=== PATIENT | female | born 1980 | race Hispanic/Latino ===

== ENCOUNTER 2021-04-21 17:04 | Emergency (ER) | payer OTHER ==
--- NOTE | 2021-04-21 18:42 | Event Note ---
ED Screening Note Date of service: 04/21/21 Time: 18:39 ED Screening Note: This initial assessment/diagnostic orders/clinical plan/treatment(s) is/are subject to change based on patients health status, clinical progression and re- assessment by fellow clinical providers in the ED. Further treatment and workup at subsequent clinical providers discretion. Patient/guardian urged not to elope from the ED as their condition may be serious if not clinically assessed and managed. Initial orders include:
--- NOTE | 2021-04-21 18:51 | Emergency Department Report ---
ED General Adult HPI - General Chief complaint: Extremity Problem,Nontraumatic Stated complaint: BOTH LEGS AND ANKLES PAIN/SWOLLEN Time Seen by Provider: 04/21/21 18:38 - History of Present Illness Initial comments: The patient was evaluated in the emergency department for symptoms described in the history of present illness. He/she was evaluated in the context of the global COVID-19 pandemic, which necessitated consideration that the patient might be at risk for infection with the virus that causes COVID-19. Institutional protocols and algorithms that pertain to the evaluation of patients at risk for COVID-19 are in a state of rapid change based on information released by regulatory bodies including the CDC and federal and state organizations. These policies and algorithms were followed during the patient's care in the emergency department. Please note that these policies, procedures and recommendations changed on a rapid basis. 40-year-old female presents to the emergency room complaining of bilateral leg swelling and pain for couple days. Patient states that she is only had this when she was . She states has been over 20 years ago. Patient is not vaccinated and is up-to-date on her vaccines. She does smoke cigarettes and states that she has recently stopped drinking alcohol as early as 2 to 3 months. Patient denies any chest pain no shortness of breath. She denies any recent travels. She does report a history of depression and hypertension. Patient states that she is currently on gabapentin Seroquel trazodone Cymbalta Wellbutrin and Lopressor. Patient states that she is followed by psychiatrist Dr. Parra. Onset/Timin -: days(s) Location: lower extremity Radiation: non-radiation Severity scale (0 -10): 9 Quality: burning, sharp Consistency: constant Improves with: none Worsens with: movement (And bearing weight) Associated Symptoms: denies: confusion, chest pain, cough, headaches, nausea/vomiting, shortness of breath Treatments Prior to Arrival: none - Related Data Previous Rx's Medication Instructions Recorded Last Taken Type Furosemide [Lasix TAB] 40 mg PO QDAY 5 Days #5 tablet 04/21/21 Unknown Rx ED Review of Systems ROS: Stated complaint: BOTH LEGS AND ANKLES PAIN/SWOLLEN Other details as noted in HPI Comment: All other systems reviewed and negative ED Past Medical Hx - Medications Home Medications: Home Medications Medication Instructions Recorded Confirmed Last Taken Type Furosemide [Lasix TAB] 40 mg PO QDAY 5 Days #5 tablet 04/21/21 Unknown Rx ED Physical Exam - General General appearance: alert, in no apparent distress - Head Head exam: Present: atraumatic, normocephalic - Eye Eye exam: Present: normal appearance - ENT ENT exam: Present: normal external ear exam - Neck Neck exam: Present: normal inspection, full ROM - Respiratory Respiratory exam: Present: normal lung sounds bilaterally. Absent: chest wall tenderness, accessory muscle use - Cardiovascular Cardiovascular Exam: Present: regular rate - Extremities Exam Extremities exam: Present: full ROM, tenderness, pedal edema - Back Exam Back exam: Present: normal inspection, full ROM - Neurological Exam Neurological exam: Present: alert, oriented X3 - Psychiatric Psychiatric exam: Present: normal affect, normal mood - Skin Skin exam: Present: warm, dry, intact, normal color. Absent: rash ED Course Vital Signs 04/21/21 18:38 Temperature 97.9 F Pulse Rate 67 Respiratory 16 Rate O2 Sat by Pulse 100 Oximetry ED Medical Decision Making - Medical Decision Making 40-year-old female presents to the emergency room complaining of bilateral leg swelling and pain for couple days. Patient states that she is only had this when she was . She states has been over 20 years ago. Patient is not vaccinated and is up-to-date on her vaccines. She does smoke cigarettes and states that she has recently stopped drinking alcohol as early as 2 to 3 months. Patient denies any chest pain no shortness of breath. She denies any recent travels. She does report a history of depression and hypertension. Patient states that she is currently on gabapentin Seroquel trazodone Cymbalta Wellbutrin and Lopressor. Patient states that she is followed by psychiatrist Dr. Parra. Discussed case with Dr. Henley who reports that he evaluate patient thinks that she most likely can go home with diuresis and pain medicine and instructions on low-sodium diet. Critical care attestation.: If time is entered above; I have spent that time in minutes in the direct care of this critically ill patient, excluding procedure time. ED Disposition Clinical Impression: Bilateral lower extremity edema, Bilateral leg pain Disposition: 01 HOME / SELF CARE / HOMELESS Is pt being admited?: No Does the pt Need Aspirin: No Condition: Stable Instructions: Low-Sodium Eating Plan, DASH Eating Plan Additional Instructions: Please take water pill as prescribed. Recommended you follow a low-sodium diet increase your protein. I do recommend [id number] compression socks and wear them 12 hours on and remove them at bed. Follow-up with your primary care provider. You can take ibuprofen or Tylenol for pain management. Prescriptions: Furosemide [Lasix TAB] 40 mg PO QDAY 5 Days #5 tablet Referrals: MADONNA EATON MD [Staff Physician] - 3-5 Days Forms: Work/School Release Form(ED) Time of Disposition: 18:57
--- NOTE | 2021-04-21 18:52 | Event Note ---
Date of service: 04/21/21 Face to Face: For this encounter I have reviewed the PA/[employer] documentation, treatment plan, medical decision making, and I had face to face time with this patient. Patient presented secondary to bilateral lower extremity edema. Her feet and ankles have been painful due to the swelling. She has no recent travel or trauma. There is no chest pain or shortness of breath. She is no cough or congestion. There is no vomiting or diarrhea. She does not eat much salt. Her diet has not really changed. On exam, she does have bilateral dependent pitting edema. There is no warmth erythema suggestive of cellulitis. There is no calf tenderness to suggest DVT. Again, this is bilateral it would be unusual to have a bilateral DVT. We have treated the patient for her dependent edema and referred her for outpatient follow-up.
[2021-04-21 19:09] VITALS: BP 115/82
== END 2021-04-21 19:29 | disposition home or self-care (01) ==
LOC: ED 17:04
DX: R60.0 Localized edema (principal); M79.604 Pain in right leg; M79.605 Pain in left leg; Z79.899 Other long term (current) drug therapy
CPT/HCPCS: 99282